=== PATIENT | female | born 1980 | race Caucasian/White ===

== ENCOUNTER 2021-11-13 11:48 | Outpatient (REF) | payer OTHER, SELFPAY ==
--- NOTE | ~2021-11-13 | XR_ITS ---
EXAMINATION: RIGHT ANKLE. RIGHT FOOT CLINICAL INFORMATION: Pain COMPARISON: None TECHNIQUE: 3 views right ankle. 3 views right foot FINDINGS: Right ankle: Mortise intact. No fracture, dislocation or destructive process. Right foot: Joint spaces do appear preserved. Mild hallux valgus deformity at the first MTP. No erosive change. No fracture, dislocation or destructive process. There is a moderate plantar spur. XR/XR ankle RT 2V IMPRESSION: Minor degenerative changes. No acute findings.
--- NOTE | ~2021-11-13 | XR_ITS ---
EXAMINATION: RIGHT ANKLE. RIGHT FOOT CLINICAL INFORMATION: Pain COMPARISON: None TECHNIQUE: 3 views right ankle. 3 views right foot FINDINGS: Right ankle: Mortise intact. No fracture, dislocation or destructive process. Right foot: Joint spaces do appear preserved. Mild hallux valgus deformity at the first MTP. No erosive change. No fracture, dislocation or destructive process. There is a moderate plantar spur. XR/XR foot RT min 3V IMPRESSION: Minor degenerative changes. No acute findings.
== END 2021-11-13 11:49 | disposition home or self-care (01) ==
LOC: HO.XRAY 11:48
PROVIDERS: Visit Provider Physician Assistant
DX: M79.671 Pain in right foot (principal)
CPT/HCPCS: 73600; 73630

== ENCOUNTER 2022-01-10 14:00 | Outpatient (RCR) | payer OTHER, SELFPAY | END 2022-04-24 08:44 | disposition home or self-care (01) | LOC: HO.PTCHIC 14:00 | PROVIDERS: Visit Provider Physician Assistant Surgical | DX: S92.211A Displaced fracture of cuboid bone of right foot, initial encounter for closed fracture (principal); S92.151A Displaced avulsion fracture (chip fracture) of right talus, initial encounter for closed fracture | CPT/HCPCS: 97110; 97161 ==

== ENCOUNTER 2022-09-23 19:30 | Emergency (ER) | payer OTHER, SELFPAY ==
[2022-09-23 19:31] VITALS: BP 121/72; PULSE 75; RESP 18; TEMP 36.6; O2SAT 100; BMI 24.0
--- NOTE | 2022-09-23 19:31 | ED.SKABFB ---
HPI - Skin/Abscess/Foreign Bdy General Chief complaint: Dental/Oral Stated complaint: Abscess Time Seen by Provider: 09/23/22 19:33 Source: patient Mode of arrival: ambulatory Limitations: no limitations History of Present Illness HPI narrative: 42-year-old female here with right upper dental pain requesting antibiotics. No fevers, chills, diff breathing or diff swallowing. Related Data Previous Rx's Medication Instructions Recorded arm brace (Elbow Strap) #1 ea 09/05/22 naproxen 500 mg tablet 500 mg PO BID PRN pain 14 days #30 09/05/22 tabs clindamycin HCl 150 mg capsule 150 mg PO TID #21 caps 09/23/22 Allergies Allergy/AdvReac Type Severity Reaction Status Date / Time Penicillins Allergy Mild RASH Verified 09/05/22 12:35 penicillin V Allergy Unknown rash Verified 09/05/22 12:35 Review of Systems Review of Systems: Yes all other systems are reviewed and are negative Constitutional: Constitutional: Reports no additional constitutional complaints, Denies body ache(s), Denies chills, Denies fever(s), Denies headache(s) and Denies weakness Eyes: Eyes: Reports no additional eye complaints and Denies change in vision ENT: Reports system reviewed and no additional complaints, except as documented, Reports dental pain, Denies dizziness, Denies headache(s), Denies nasal congestion, Denies nasal discharge and Denies neck pain Cardiovascular: Cardiovascular: Reports no additional cardiovascular complaints, Denies chest pain, Denies leg edema and Denies dyspnea Respiratory: Respiratory: Reports no additional respiratory complaints, Denies cough and Denies dyspnea Gastrointestinal: Gastrointestinal: Reports no additional gastrointestinal complaints, Denies abdominal pain, Denies diarrhea, Denies nausea and Denies vomiting Genitourinary: Genitourinary: Reports no additional female genitourinary complaints and Denies urinary incontinence Musculoskeletal: Musculoskeletal: Reports no additional musculoskeletal complaints, Denies back pain, Denies arthralgias, Denies joint swelling, Denies neck pain, Denies numbness and Denies tingling Integumentary/Breasts: Skin/Breast: Reports system reviewed and no additional complaints, except as docu and Denies rash Neurologic: Reports system reviewed and no additional complaints, except as documented, Denies Abnormal speech present, Denies dizziness, Denies headache(s), Denies numbness, Denies tingling and Denies weakness [facility] Past Medical History Attestation statement: The following information was validated with the patient. Source: old records reviewed and nursing notes reviewed Social History Social History Patient Tobacco Use Status: Current everyday Tobacco user Advance Directives: No Advance Directives Information Provided: Yes Physical Exam Vital Signs: Vital Signs: Last Vital Signs Temp 98 F 09/23/22 19:31 Pulse 75 09/23/22 19:31 Resp 18 09/23/22 19:31 BP 121/72 09/23/22 19:31 Pulse Ox 100 09/23/22 19:31 O2 Del Method Room Air 09/23/22 19:31 BMI result Body Mass Index 24.0 Const: General: cooperative, healthy appearing, comfortable and no acute distress Orientation/consciousness: patient oriented x3 Limitations: no limitations HEENT: Other: Extensive caries. No trismus. At the right upper gum line there is a small abscess. Head: Yes normal to inspection Ears: hearing grossly normal bilaterally General nose exam: Normal external nose present Face and sinus: Yes normal facial exam Mouth: Normal oral and palatal mucosa present Teeth and gingiva: caries Throat: Yes posterior oropharynx normal Eyes: General: appearance normal, both eyes and all related structures Pupils: Equal, round and reactive pupils present Neck: Neck: Yes normal visual inspection Chest: Chest palpation & inspection: normal inspection of the chest Resp: Effort & Inspection: normal respiratory effort Auscultation: clear to auscultation bilaterally Cardio: Rate: regular rate Rhythm: regular rhythm Peripheral pulses: Peripheral pulses 2+ throughout GI: Inspection: Yes normal to inspection Palpation (GI): Soft to palpation and nontender Auscultation: normal bowel sounds Back/Spine/Pelvis: Thoracic/Lumbar Spine: thoracic and lumbar spine normal to inspection Skin: General skin exam: no rashes or lesions noted Neuro: General: patient oriented x3, no focal motor deficits and normal sensation to monofilament Cranial nerves: Yes Equal, round and reactive pupils present Cognition (Neuro): normal cognition Speech: No Abnormal speech present Gait exam (Neuro): Normal gait present Motor exam (neuro): 5/5 motor strength present throughout Extrem: General: Yes normal to inspection Course Course Course Narrative: This is a rapid medical exam. Defer additional HPI, ROS, PE to primary provider. 42 yo female with no known medical history Medical Decision Making Medical Decision Making MDM Narrative: 42 yo female here with right upper dental pain requesting antibiotics. Unable to see her dentist. On exam there is a small abscess w/ extensive caries Offered I&D. Patient declined. Will send home with clindamycin, recommend salt water gargles, oragel and f/u with dental outpatient Differential Diagnosis Differential Diagnoses: The differential diagnosis associated with the presentation includes No evidence of Jameel's angina Discharge Plan Discharge Clinical Impression: Abscess, dental Patient Disposition: Home, Self-Care Instructions: Dental Abscess (ED) Prescriptions: New clindamycin HCl 150 mg capsule 150 mg PO TID Qty: 21 0RF No Action naproxen 500 mg tablet 500 mg PO BID PRN (Reason: pain) 14 Days Qty: 30 0RF (DME) Elbow Strap Misc See Rx Instructions .Route Qty: 1 0RF Rx Instructions: As directed Interventions: ED Discharge Assessment Last Done: 09/23/22 19:36 Discharge Date/Time: 09/23/22 19:39
== END 2022-09-23 19:39 | disposition home or self-care (01) ==
LOC: HO.ED 19:39
PROVIDERS: Emergency Provider Emergency Medicine
DX: K04.7 Periapical abscess without sinus (principal); F17.200 Nicotine dependence, unspecified, uncomplicated; Z71.6 Tobacco abuse counseling
CPT/HCPCS: 99282; 99283

== ENCOUNTER 2023-05-07 21:45 | Emergency (ER) | payer MEDICAID, SELFPAY ==
--- NOTE | ~2023-05-07 | XR_ITS ---
EXAMINATION: XR CHEST CLINICAL INFORMATION: Shortness of breath and cough COMPARISON: Previous chest x-ray January 2018 TECHNIQUE: 2 views of the chest were obtained. FINDINGS: The cardiac and mediastinal contours are stable. The lungs are well-inflated. There is question of bronchial wall thickening at the lung bases. No evidence of pneumonia. No pleural effusion or pneumothorax. Mild degenerative changes of the spine. XR/XR chest 2V IMPRESSION: Well-inflated lungs. Question bronchial wall thickening at the lung bases.
[2023-05-07 21:55] VITALS: BP 138/88; PULSE 88; O2SAT 98
--- NOTE | 2023-05-07 22:00 | ECG_ITS ---
Test Reason : CP Blood Pressure : / mmHG Vent. Rate : 091 BPM Atrial Rate : 091 BPM P-R Int : 132 ms QRS Dur : 078 ms QT Int : 354 ms P-R-T Axes : 077 060 066 degrees QTc Int : 435 ms Normal sinus rhythm Normal ECG When compared with ECG of 08-JUL-2017 19:46, No significant change was found Referred By: Ginny Hernandez Electronically Signed By:MICHAEL MOSLEY
[2023-05-07 22:01] VITALS: BMI 24.9
[2023-05-07 22:10] VITALS: BP 111/77; PULSE 101; RESP 13; TEMP 37.3; O2SAT 95
--- NOTE | 2023-05-07 22:14 | ED.URI ---
HPI - URI/Sore Throat General Chief Complaint: Upper Respiratory Symptoms Stated Complaint: PROD COUGH,FEVER,SOB W/ALB UPD GIVEN PER EMS Time Seen by Provider: 05/07/23 21:49 Source: patient Mode of arrival: EMS Limitations: no limitations History of Present Illness HPI Narrative: Patient is a 43-year-old female who presents emergency department for evaluation of multiple complaints. She has been experiencing a productive cough yellow/green phlegm for the past 2 weeks. Fever with reported T max 103.1 With progressive worsening. Intermittent fevers. Today while sitting in her car she developed sudden onset of left lower anterior chest pain that she felt radiating into her back, since its onset she states that it has been constant, severe, 02/18, she states it is worse with deep breathing or lying on her left side. She has been experiencing shortness of breath since the onset of her cough, unrelieved with albuterol nebulizers at home. She denies any lower extremity pain, swelling, redness. Personal history of DVT/PE/malignancy. Denies nausea vomiting. She does state that she picked up her daughter from her custodial 2 days ago, her daughter had previously tested positive for COVID-19 but this was the end of her quarantine date, she did go into the home directly where others are also ill with COVID-19. Also, she states that she has been treated for pyelonephritis recently, 1 month ago was prescribed Macrobid, reportedly did not cover the bacterial strain, in 2 weeks ago she was treated with Cipro for pyelonephritis, this was at [facility], she received a 5 day course which she completed 5 days ago. She states she is having a return of the bladder spasming, intermittent pain with urination. Related Data Previous Rx's Medication Instructions Recorded arm brace (Elbow Strap) #1 ea 09/05/22 naproxen 500 mg tablet 500 mg PO BID PRN pain 14 days #30 09/05/22 tabs clindamycin HCl 150 mg capsule 150 mg PO TID #21 caps 09/23/22 azithromycin 250 mg tablet See Rx Instructions PO .COMPLEX #6 05/08/23 tabs cefpodoxime 200 mg tablet 200 mg PO BID #9 tabs 05/08/23 Allergies Allergy/AdvReac Type Severity Reaction Status Date / Time Penicillins Allergy Mild RASH Verified 09/05/22 12:35 penicillin V Allergy Unknown rash Verified 09/05/22 12:35 Review of Systems Review of Systems: Yes all other systems are reviewed and are negative [facility] Past Medical History Attestation statement: The following information was validated with the patient. Source: old records reviewed Social History Social History Patient Tobacco Use Status: Current everyday Tobacco user Advance Directives: No Advance Directives Information Provided: No Physical Exam Vital Signs: Vital Signs: Last Vital Signs Temp 99.2 F 05/07/23 22:10 Pulse 91 05/08/23 00:00 Resp 18 05/08/23 00:00 BP 98/62 05/08/23 00:00 Pulse Ox 95 05/08/23 00:00 O2 Del Method Room Air 05/08/23 00:00 BMI result Body Mass Index 24.9 Appearance: Alert.?Oriented to person, place and time. No acute distress.?Normal affect. Eyes: Pupils equal, round and reactive to light.? ENT: Pharynx normal.??TM normal bilaterally. Neck: Normal inspection.? Neck supple.??No cervical lymphadenopathy. CVS: Heart sounds normal. Normal heart rate and rhythm.? Pulses normal.?? Respiratory: No respiratory distress.? Lung sounds mild rhonchi bilaterally, no wheezing, s/p nebulizer pre-hospital?? Abdomen: Soft with suprapubic tenderness upon palpation no CVA tenderness. Normoactive bowel sounds. ?? Skin: Skin warm and dry.? Normal skin color.? Extremities: No lower extremity edema.? No calf ttp? Neuro: Moves all extremities spontaneously. Sensation intact bilaterally. Ambulates with normal steady gait. Course Reevaluation(s) Reevaluation #1: CBC reveals leukocytosis with a left shift any of. Unremarkable CMP. High sensitive troponin below detectable levels, EKG reveals a normal sinus rhythm with ventricular rate of 91, QTC 435, no ST elevation, no ST depression, no T-wave inversion, not consistent with ACS. COVID-19 and influenza testing are negative. Urinalysis with trace leukocyte esterase, no urine bacteria seen, negative nitrates, upon review of pharmacy records it does appear as though she was treated with Cipro 250 mg twice daily for 5 days. Chest X ray with question of bronchial wall thickening at the lung bases without evidence of pleural effusion or pneumothorax. I reviewed all these findings with patient. Again, her abdominal examination is benign she is without nausea vomiting lower back or flank pain, from the lower suspicion for acute abdominal etiology at this time. Given duration of symptoms and presentation treat for community-acquired pneumonia. Reviewed this case with ED attending Dr. Sage who agrees with plan of care Time: 01:14 Medications Administered Discontinued Medications Generic Name Dose Route Start Last Admin Trade Name Freq PRN Reason Stop Dose Admin Sodium Chloride 1,000 mls @ 999 mls/hr 05/07/23 22:45 05/07/23 23:06 Ns IV 05/07/23 23:45 999 mls/hr .Q1H1M MEENA Administration Ketorolac Tromethamine 30 mg 05/07/23 22:39 05/07/23 23:06 Ketorolac Tromethamine 30 Mg/Ml Vial IVPUSH 05/07/23 22:40 30 mg ONCE ONE Administration Methylprednisolone Sodium Succinate 80 mg 05/07/23 22:40 05/07/23 23:06 Methylprednisolone Sod Succ 125 Mg/2 Ml Vial IVPUSH 05/07/23 22:41 80 mg ONCE ONE Administration Medical Decision Making Medical Decision Making MDM Narrative: Patient is a 43-year-old female presents emergency department for evaluation of cough with shortness of breath, chest pain, in addition to genitourinary symptoms as per HPI. At the time examination she appears fatigued, dyspnea with exertion. Mild rhonchi bilaterally to the upper lobes, good aeration throughout the lower lobes, notable productive cough. Abdominal examination reveals mild tenderness the suprapubic/mid lower abdominal region, no CVA tenderness. No rigidity. No guarding. No rebound tenderness.Will obtain CBC to evaluate for leukocytosis/ anemia, CMP and lipase to evaluate for abnormal electrolytes /abnormal renal function/ abnormal hepatic/biliary function, EKG and troponin to evaluate for ischemia/ACS. Chest x-ray to evaluate for consolidation/ infiltrate/ mass/ pulmonary congestion and Urinalysis. Differential Diagnosis Differential Diagnoses: The differential diagnosis associated with the presentation includes (COVID-19, influenza, viral illness, ACS, gastritis, UTI, pyelonephritis, renal colic) Admission/Observation Consideration of admission/observation: Escalation of care including admission/observation considered (See narrative above and course narrative for further detail) Lab Data 05/07/23 22:40 05/07/23 22:40 Labs: Lab Results 05/07/23 05/07/23 05/07/23 Range/Units 22:30 22:36 22:40 WBC 20.8 H (4.8-10.8) X10*3/uL RBC 4.94 (4.20-5.50) X10*6/uL Hgb 14.8 (12.0-16.0) g/dl Hct 42.6 (37.0-47.0) % MCV 86.2 (80.0-98.0) fL MCH 30.0 (27.0-33.0) pg MCHC 34.7 (31.0-35.0) g/dl RDW 12.6 (11.0-16.0) % Plt Count 211 (160-400) X10*3/uL MPV 9.9 (9.4-12.3) fL Immature Gran % (Auto) 0.5 H (0.0-0.4) % Neut % (Auto) 84.5 H (45-73) % Lymph % (Auto) 6.5 L (20-40) % Mclean % (Auto) 8.1 (2-11) % Eos % (Auto) 0.2 (0-4) % Baso % (Auto) 0.2 (0-2) % Lymph # (Auto) 1.4 (1.2-4.9) X10*3/uL [place] # (Auto) 1.7 H (0.1-1.2) X10*3/uL Eos # (Auto) 0.0 (0.0-0.4) X10*3/uL Baso # (Auto) 0.1 (0.0-0.2) X10*3/uL Abs Immat Gran (auto) 0.10 H (0.00-0.03) X10*3/uL Absolute Neuts (auto) 17.6 H (2.0-8.3) x10*3/uL Absolute Nucleated RBC 0.000 (0.0-0.012) X10*3/uL Nucleated RBC % (auto) 0.0 (0.0-0.2) /100WBC Smear Tech's Comments VERIFIED PT 14.0 H (11.1-13.3) SEC INR 1.2 H (0.9-1.1) Sodium 138 (135-145) mmol/L Potassium 3.9 (3.3-5.1) mmol/L Chloride 103 (96-108) mmol/L Carbon Dioxide 24 (22-29) mmol/L Anion Gap 15 (12-20) BUN 7 L (9-16) mg/dL Creatinine 0.80 (0.5-1.4) mg/dL Estim Creat Clear Calc 73.8 Estimated GFR > 60 Random Glucose 102 (60-115) mg/dL Calcium 9.7 (8.4-10.2) mg/dL Total Bilirubin 0.7 (0.0-1.0) mg/dL AST 14 (5-31) U/L ALT 5 (0-31) U/L Alkaline Phosphatase 42 (39-117) U/L Troponin I High Sens < 2.7 (<3.5-17.0) ng/L Total Protein 7.8 (6.5-8.0) g/dL Albumin 4.5 (3.5-5.0) g/dL Urine Color Yellow Urine Appearance Clear Urine pH 8.0 (5.0-9.0) Ur Specific [place] <= 1.005 (1.005-1.025) Urine Protein Negative (Neg-Trace) mg/dL Urine Glucose (UA) Negative (Negative) mg/dL Urine Ketones Negative (Negative) mg/dL Urine Blood Negative (Negative) Urine Nitrite Negative (Negative) Ur Leukocyte Esterase Trace H (Negative) Urine RBC 0-2 (0-2) /HPF Urine WBC 0-5 (0-5) /HPF Ur Squamous Epith Cells 3-5 (0-2) /HPF Urine Bacteria None Seen (None Seen) Hyaline Casts 0-2 (0-2) /LPF Urine Test NEGATIVE (NEGATIVE) COVID-19 (TOMMY) Negative (Negative) COVID-19 Clin Com See Note Influenza Type A (CINDY) Negative (Negative) Influenza Type B (CINDY) Negative (Negative) Influenza A & B Note See Note Independent Interpretation I performed an independent interpretation of an: EKG and Plain X-Ray (I personally interpreted chest x-ray and agree with radiologist impression.) Interpretation: Rate: Rhythm:? [place]:? Normal P waves.? Normal CANDI.?? Normal QRS complex.?? ST T wave :?? qTC: prior studies:? The study has been interpreted contemporaneously by me. Radiology Impression Discussion of test interpretation with radiology: I have reviewed the radiologist's reading. Independent Historian Clinical information obtained from an independent historian. History obtained from or confirmed by: EMS External Record Review External record reviewed: Outpatient record Discharge Plan Discharge Clinical Impression: Upper respiratory infection Patient Disposition: Home, Self-Care Instructions: Upper Respiratory Infection (ED) Additional Instructions: I have sent a prescription for antibiotics to your pharmacy including a prescription for cefpodoxime to take twice daily, and azithromycin as instructed. You can take ibuprofen 200 mg, 3 tablets (600mg) every 6-8 hours as needed for pain, in addition to Tylenol 500 mg, 2 tablets (1,000mg) every 4-6 hours as needed for pain, but not to exceed 3 doses daily (3,000mg).? Be sure to rest, stay well hydrated drinking plenty of fluids, eat small frequent meals. Snip-eae-qfrzahe cold medications may be helpful as well for symptoms. Saline nasal spray, humidifier may be helpful for nasal congestion. Y ou may return to the emergency department with any new or worsening symptoms or concerns. Follow-up with your primary care provider by next week Prescriptions: New cefpodoxime 200 mg tablet 200 mg PO BID Qty: 9 0RF Rx Instructions: must administer with a meal/food azithromycin 250 mg tablet See Rx Instructions .ROUTE .COMPLEX Qty: 6 0RF Rx Instructions: For 250 mg dose pack: take 500 mg today (day 1), then 250 mg for 4 days (days 2-5) No Action clindamycin HCl 150 mg capsule 150 mg PO TID Qty: 21 0RF naproxen 500 mg tablet 500 mg PO BID PRN (Reason: pain) 14 Days Qty: 30 0RF (DME) Elbow Strap Misc See Rx Instructions .Route Qty: 1 0RF Rx Instructions: As directed Referrals: Physician,Unknown J [Primary Care Provider] -
--- NOTE | 2023-05-07 22:30 | PC.NURSE ---
this rn assumed care of pt from ems @ [id number]. pt placed on membership sales representative ekg obtained lucila clinical ob made aware of pt
[2023-05-07 22:59] LABS: Basophils Absolute Auto 0.1 X10*3/uL (0.0-0.2); Basophils Percent Auto 0.2 % (0-2); Eosinophils Percent Auto 0.2 % (0-4); Hematocrit 42.6 % (37.0-47.0); Hemoglobin 14.8 g/dl (12.0-16.0); Imm Gran Pct Auto 0.5 % (0.0-0.4); Lymphocytes Absolute Auto 1.4 X10*3/uL (1.2-4.9); Lymphocytes Percent Auto 6.5 % (20-40); MANUAL DIFF FLAG SCAN; Mean Corpuscular HGB Conc 34.7 g/dl (31.0-35.0); Mean Corpuscular Volume 86.2 fL (80.0-98.0); Mean Platelet Volume 9.9 fL (9.4-12.3); Monocytes Absolute Auto 1.7 X10*3/uL (0.1-1.2); Monocytes Percent Auto 8.1 % (2-11); Neutrophils Absolute Auto 17.6 x10*3/uL (2.0-8.3); Neutrophils Percent Auto 84.5 % (45-73); Platelet Count 211 X10*3/uL (160-400); Red Blood Count 4.94 X10*6/uL (4.20-5.50); Red Cell Distribution Width 12.6 % (11.0-16.0); SCAN SMEAR FLAG 1; White Blood Count 20.8 X10*3/uL (4.8-10.8)
[2023-05-07 23:02] LABS: Appearance Urine Clear; Color Urine Yellow; Glucose Urine UA Negative (Negative); Leukocyte Esterase Urine Trace (Negative); Nitrite Urine Negative (Negative); Specific Gravity - Urine <= 1.005 (1.005-1.025); UMIC TRIGGER UACC YES; Urine Blood Negative (Negative); Urine Ketones Negative (Negative); Urine Protein Negative (Neg-Trace)
[2023-05-07 23:04] LABS: UPreg QC Valid YES; Urine Pregnancy NEGATIVE (NEGATIVE)
[2023-05-07] MEDS: methylPREDNISolone Sod Succ 125 MG/2 ML VIAL 80 MG IVPUSH (23:06)
[2023-05-07] MEDS: Ketorolac Tromethamine 30 MG/ML VIAL IVPUSH (23:06)
[2023-05-07] MEDS: 0.9 % Sodium Chloride 1,000 ML 999 ML IV (23:06)
[2023-05-07 23:07] LABS: INTERNATIONAL NORM RATIO 1.2 (0.9-1.1)
[2023-05-07 23:15] LABS: Alanine Aminotransferase 5 U/L (0-31); Albumin Level 4.5 g/dL (3.5-5.0); Alkaline Phosphatase 42 U/L (39-117); Anion Gap 15 (12-20); Aspartate Amino Transferase 14 U/L (5-31); Bilirubin Total 0.7 mg/dL (0.0-1.0); Blood Urea Nitrogen 7 mg/dL (9-16); Calcium 9.7 mg/dL (8.4-10.2); Carbon Dioxide 24 mmol/L (22-29); Chloride 103 mmol/L (96-108); Creatinine Clr Calc Pharmacy 73.8; Estimated Glomerular Filt Rate > 60; Glucose Random 102 mg/dL (60-115); Potassium 3.9 mmol/L (3.3-5.1); Sodium 138 mmol/L (135-145); Total Protein 7.8 g/dL (6.5-8.0)
[2023-05-07 23:16] LABS: Bacteria Urine None Seen (None Seen); Hyaline Casts Urine 0-2 /LPF (0-2); RBC Urine 0-2 /HPF (0-2); WBC Urine 0-5 /HPF (0-5)
[2023-05-07 23:19] LABS: IDNOW Serial# 08D9AD1C; Influenza A Negative (Negative); Influenza B2 Negative (Negative)
[2023-05-07 23:20] LABS: COVID-19 Test Negative (Negative); IDNOW Serial# BCCEAD1C
[2023-05-07 23:23] LABS: Troponin-I High Sensitivity < 2.7 ng/L (<3.5-17.0)
[2023-05-07 23:25] LABS: SLIDE REVIEW VERIFIED
[2023-05-08] VITALS: BP 98/62; PULSE 91; RESP 18; O2SAT 95
--- NOTE | 2023-05-08 00:02 | PC.NURSE ---
this rn attempted to medicated pt via ems iv line. line leaked and pt reports burning sensation. iv line replaced with 20g IV in R FA. ppt medicated according to ne
[2023-05-08 01:10] VITALS: TEMP 37.3
[2023-05-08 01:45] VITALS: BP 94/60; PULSE 82; RESP 22; TEMP 37.2; O2SAT 98
--- NOTE | 2023-05-08 02:00 | PC.NURSE ---
iv removed at discharge. pt ambulatory at discharge. pt calm and cooperative pt provided with discharge packet and work note. pt verbalized understanding of discharge plan
== END 2023-05-08 02:00 | disposition home or self-care (01) ==
PROVIDERS: Nurse Practitioner Family; Emergency Provider Emergency Medicine
DX: J06.9 Acute upper respiratory infection, unspecified (principal); Z11.52 Encounter for screening for COVID-19
CPT/HCPCS: 36415; 71046; 80053; 81001; 81003; 81025; 84484; 85025; 85610; 87502; 87635; 93005; 96361; 96374; 96375; 99284; 99285; J1885; J2930

== ENCOUNTER → 2023-05-07 22:00 | Outpatient (BNV) | payer MEDICAID, SELFPAY | PROVIDERS: Emergency Provider Emergency Medicine; Visit Provider Internal Medicine | DX: R07.9 Chest pain, unspecified (principal) | CPT/HCPCS: 93010 ==